=== PATIENT | female | born 1955 | race Caucasian/White ===

== ENCOUNTER → 2017-10-24 | Outpatient (CLI) | payer BC ==
[~2017-10-24] MED LIST: ERGO400T9 PO; ESTR0.5T18 PO; ESTR10TA4 VG; MOMR NS; MULT-1335 PO; TRET40CR9 TP
--- NOTE | 2017-10-24 14:34 | RADIOLOGY IMAGING REPORT ---
FACILITY: [facility] PATIENT NAME: Jordana Uriarte : 1955 MR: [id number] V: [id number] EXAM DATE: ORDERING PHYSICIAN: MARIA E SCHNEIDER TECHNOLOGIST: Location: [facility] [place] Patient: Jordana Uriarte : 1955 Visit/Account:[id number] Date of Sevice: 10/24/2017 EXAMINATION: MRI Lumbar spine without intravenous contrast HISTORY: Lumbar radiculopathy. COMPARISON: 02/27/2013. TECHNIQUE: Multi-planar, multi-sequence lumbar spine MRI was performed without intravenous contrast administration. FINDINGS: Alignment: 4 mm of anterior listhesis of L4 over L5. Vertebral marrow signal: Degenerative erosive and sclerotic endplate changes at L4-L5. Distal thoracic cord: Not seen. Conus: negative, terminates at T12-L1. Cauda equina: Small Tarlov cysts at S2. Otherwise negative. Paravertebral soft tissues: Negative. Visualized abdominal and pelvic structures: Negative. Disc Spaces: Lower thoracic spine: Negative. L1-2: Negative. L2-3: Mild circumferential disc bulge and facet hypertrophy. No significant stenosis. L3-4: Mild disc height loss with circumferential disc bulge, eccentric to the left, and left greater than right facet hypertrophy and ligamentum flavum thickening. Mild right and moderate left lateral recess stenosis. Mild to moderate bilateral neural foraminal stenosis. L4-5: Grade 1 anterior listhesis. Severe disc height loss. Circumferential disc bulge, facet hypert rophy, and ligamentum flavum thickening. Moderate bilateral lateral recess stenosis. Mild to modera te central spinal canal stenosis. Mild to moderate left and moderate right neural foraminal stenosis . L5-S1: Mild disc bulge. Moderate to severe facet hypertrophy. Mild bilateral lateral recess stenosi s. Mild left and moderate right neural foraminal stenosis. Subcentimeter synovial cyst extending an teriorly from the right facet joint into the lateral aspect of the neural foramen. IMPRESSION: Multilevel degenerative disc disease and facet hypertrophy with grade 1 anterior listhesis of L4 over L5. Please see above report for level by level description. Report Dictated By: Thomas Vallejo MD at 10/24/2017 2:19 PM Report E-Signed By: Thomas Vallejo MD at 10/24/2017 2:30 PM WSN:[id number]
== END ==
LOC: MRI 11:01
PROVIDERS: ATTEND Nurse Practitioner Family
DX: M12.9 Arthropathy, unspecified (principal); M48.061 Spinal stenosis, lumbar region without neurogenic claudication; M53.3 Sacrococcygeal disorders, not elsewhere classified
CPT/HCPCS: 72148

== ENCOUNTER → 2018-01-20 | Outpatient (CLI) | payer BC ==
--- NOTE | 2018-01-20 10:58 | RADIOLOGY IMAGING REPORT ---
FACILITY: [facility] [place] PATIENT NAME: Jordana Uriarte : 1955 MR: [id number] V: [id number] EXAM DATE: ORDERING PHYSICIAN: MARIA E SCHNEIDER TECHNOLOGIST: Location: [facility] Patient: Jordana Uriarte : 1955 Visit/Account:[id number] Date of Sevice: 01/20/2018 Exam type: CHEST PA AND LAT History: Contrast two years, worse within the last two months Comparison: November 12, 2016. Findings: There is mild hyperinflation lung braun. There is a small focal area of increased density in the in ferolateral left lung base not appreciated on the prior study. This could represent a superimposed s hadow from overlapping rib although small pulmonary nodule not excluded. There is no evidence of foc al infiltrates pleural effusions or overt pulmonary edema. No evidence of a pneumothorax or pneumome diastinum. Cardiac silhouette is normal in size. IMPRESSION: 1. Mild hyperinflation lung braun Small focal area of increased density is seen along the inferolateral left lung base not appreciated on the prior study. This could represent superimposed shadow although pulmonary nodule not excluded and short-term interval follow-up chest or chest CT recommended depending upon the clinical concern Report Dictated By: Rachel Foy MD at 01/20/2018 10:52 AM Report E-Signed By: Rachel Foy MD at 01/20/2018 10:54 AM WSN:[id number]
== END ==
LOC: RAD 10:06
PROVIDERS: ATTEND Nurse Practitioner Family
DX: R91.8 Other nonspecific abnormal finding of lung field (principal)
CPT/HCPCS: 71046

== ENCOUNTER → 2018-01-25 | Outpatient (CLI) | payer BC ==
--- NOTE | 2018-01-25 15:56 | RADIOLOGY IMAGING REPORT ---
FACILITY: PATIENT NAME: SOO ORTIZ : [id number] MR: [id number] V: [id number] EXAM DATE: [id number] ORDERING PHYSICIAN: MARIA E SCHNEIDER TECHNOLOGIST: Cheyanne Son PROCEDURE:BILATERAL DIGITAL SCREENING MAMMOGRAM WITH CAD ASSISTED INTERPRETATION & 3D TOMOSYNTHESIS COMPARISON:Prior mammograms 05/10/16, 03/18/15, 02/14/14, 03/14/13, 03/06/13. INDICATIONS:SCREENING FINDINGS: There are bilateral subpectoral breast implants in place. The implants appear to have been replaced when compared to the prior study. There are 2 focal areas of increased density in the upper portion of the Right breast on the implant displacement Right MLO view that appear more prominent when compared to the prior study. A spot compression view is recommended for further evaluation. DIAGNOSTIC CATEGORY 0--INCOMPLETE: NEED ADDITIONAL IMAGING EVALUATION. RECOMMENDATIONS: ADDITIONAL MAMMOGRAPHIC VIEWS REQUIRED: RIGHT BREAST. IMPRESSION: BIRADS 0: Incomplete. Addition views of the Right breast recommended as described above. Dictated by: Rachel Foy M.D. on 01/25/2018 at 15:35 Transcribed by: ARNOLDO on 01/25/2018 at 15:41 Approved by: Rachel Foy M.D. on 01/25/2018 at 15:55 [facility]
== END ==
LOC: MAMO 13:41
PROVIDERS: ATTEND Nurse Practitioner Family
DX: Z12.31 Encounter for screening mammogram for malignant neoplasm of breast (principal); R92.8 Other abnormal and inconclusive findings on diagnostic imaging of breast
CPT/HCPCS: 77063; 77067

== ENCOUNTER → 2018-02-14 | Outpatient (CLI) | payer BC ==
--- NOTE | 2018-02-14 08:49 | RADIOLOGY IMAGING REPORT ---
FACILITY: [facility] PATIENT NAME: Jordana Uriarte : 1955 MR: [id number] V: [id number] EXAM DATE: ORDERING PHYSICIAN: MARIA E SCHNEIDER TECHNOLOGIST: Location: [facility] Patient: Jordana Uriarte : 1955 Visit/Account:[id number] Date of Sevice: 02/14/2018 CT chest without IV contrast History: Potential pulmonary nodule seen on chest x-ray COMPARISON STUDIES: Chest x-ray 01/20/2018. TECHNIQUE: Axial CT images were obtained through the chest without IV contrast. Reformatted coronal and sagittal images were also obtained. One of the following dose optimization techniques was utilized in the performance of this exam: Autom ated exposure control; adjustment of the mA and/or kV according to the patient's size; or use of an i terative reconstruction technique. Specific details can be referenced in the facility's radiology C T exam operational policy. FINDINGS: CT Chest- Lower neck: Negative Lungs and pleura: The finding on the chest x-ray may have represented a prominent anterior costochon dral junction. There is no pulmonary nodule. Mediastinum and pardeep: Normal Heart, aorta, and great vessels: Mild calcification of the left anterior descending coronary artery. Bones: Negative Chest wall: Bilateral breast implants are noted. Upper Abdomen: Negative IMPRESSION: 1. There is no pulmonary or pleural nodule corresponding to the finding on the chest x-ray. This prob ably represents a prominent anterior costochondral junction. 2. Mild calcification of the LAD. Report Dictated By: Marcia Li MD at 02/14/2018 8:34 AM Report E-Signed By: Marcia Li MD at 02/14/2018 8:46 AM WSN:[id number]
== END ==
LOC: CT 01:25
PROVIDERS: ATTEND Nurse Practitioner Family
DX: I25.10 Atherosclerotic heart disease of native coronary artery without angina pectoris (principal); Z98.82 Breast implant status
CPT/HCPCS: 71250

== ENCOUNTER → 2018-02-17 | Outpatient (CLI) | payer BC | LOC: RESP 04:20 | PROVIDERS: ATTEND Nurse Practitioner Family | DX: J98.4 Other disorders of lung (principal) | CPT/HCPCS: 94060; 94726; 94729 ==

== ENCOUNTER → 2018-04-03 | Outpatient (CLI) | payer BC ==
--- NOTE | 2018-04-04 11:28 | RADIOLOGY IMAGING REPORT ---
FACILITY: [facility] [place] PATIENT NAME: SOO ORTIZ : [id number] MR: [id number] V: [id number] EXAM DATE: [id number] ORDERING PHYSICIAN: MARIA E SCHNEIDER TECHNOLOGIST: Saige De Leon RT(R)(CT) PROCEDURE:US RIGHT BREAST COMPARISON:Right breast mammogram 04/03/18. INDICATIONS:FURTHER EVAL FINDINGS: In the Right axilla there is a 1.2 x 0.6 x 1.5cm fatty replaced lymph node. In the 11:30 position of the Right breast 7cm from the nipple there is a 4.6mm cyst and a 4.7mm cyst. Also in the 11:30 position Right breast 7cm from the nipple is a small fatty replaced lymph node measuring 4.7 x 3.9 x 2.4mm. These findings likely account for mammographic findings. DIAGNOSTIC CATEGORY 2--BENIGN FINDING. RECOMMENDATIONS: ROUTINE MAMMOGRAM AND CLINICAL EVALUATION. IMPRESSION: BIRADS 2: Benign finding. There are 2 small cysts and 2 fatty replaced lymph nodes in the upper outer quadrant of the Right breast likely accounting for the mammographic findings. Dictated by: Rachel Foy M.D. on 04/04/2018 at 8:34 Transcribed by: ARNOLDO on 04/04/2018 at 9:35 Approved by: Rachel Foy M.D. on 04/04/2018 at 11:27 [facility]
--- NOTE | 2018-04-04 11:28 | RADIOLOGY IMAGING REPORT ---
FACILITY: [facility] PATIENT NAME: SOO ORTIZ : [id number] MR: [id number] V: [id number] EXAM DATE: ORDERING PHYSICIAN: MARIA E SCHNEIDER TECHNOLOGIST: Gisell Mishra PROCEDURE:RIGHT DIGITAL DIAGNOSTIC MAMMOGRAM WITH CAD ASSISTED INTERPRETATION & 3D TOMOSYNTHESIS COMPARISON:Prior mammograms 01/25/18, 05/10/16, 03/18/15, 02/14/14, 03/14/13, 03/06/13. INDICATIONS:FURTHER EVAL FINDINGS: The patient returns for Spot compression view in the Right MLO implant displacement position with 3D breast Tomosynthesis. There are several nodular densities identified in the upper portion of the Right breast on the Right MLO view. The Right breast Ultrasound did demonstrate 2 small cysts and 2 fatty replaced lymph nodes in the upper outer quadrant of the Right breast likely accounting for the findings. There is no demonstration of malignant appearing mass or calcifications in the Right breast. DIAGNOSTIC CATEGORY 2--BENIGN FINDING. RECOMMENDATIONS: ROUTINE MAMMOGRAM AND CLINICAL EVALUATION. IMPRESSION: BIRADS 2: Benign finding. Well circumscribed nodular densities upper portion of the Right breast on the Right MLO implant displacement view likely represent the 2 small cysts and 2 fatty replaced lymph nodes in the upper outer quadrant of the Right breast as seen on the current Right breast Ultrasound. Dictated by: Rachel Foy M.D. on 04/04/2018 at 8:36 Transcribed by: ARNOLDO on 04/04/2018 at 9:28 Approved by: Rachel Foy M.D. on 04/04/2018 at 11:27 [facility]
== END ==
LOC: MAMO 03:30
PROVIDERS: ATTEND Nurse Practitioner Family
DX: N60.01 Solitary cyst of right breast (principal)
CPT/HCPCS: 77061; 77065